=== PATIENT | female | born 2000 | race Caucasian/White ===

== ENCOUNTER 2024-03-27 10:21 | Emergency (ER) | payer OTHER, BC ==
[~2024-03-27] VITALS: Ht 157.5 cm; Wt 61.4 kg
[2024-03-27 10:24] VITALS: BP 118/75; TEMP 98.5
[2024-03-27 12:20] VITALS: PULSE 67
== END 2024-03-27 12:20 | disposition home or self-care (01) ==
LOC: COL.ER 10:21
DX: S62.647A Nondisplaced fracture of proximal phalanx of left little finger, initial encounter for closed fracture (principal); W23.1XXA Caught, crushed, jammed, or pinched between stationary objects, initial encounter